=== PATIENT | female | born 1980 | race Caucasian/White ===

== ENCOUNTER 2016-10-07 09:17 | Emergency (ER) | payer OTHER ==
[2016-10-07 10:10] VITALS: BP 128/67
--- NOTE | 2016-10-07 12:22 | UC ---
Minor Trauma HPI - HPI Summary HPI Summary: SLIPPED DOWN A FLIGHT OF WOOD STEPS THIS MORNING 8AM. HIT THE BACK OF HER HEAD. NO LOC. IS CONCERNED SHE MAY HAVE CONCUSSED. HAD DIZZINESS AND NAUSEA FOR ABOUT AN HOUR AFTER THE INCIDENT. NOW FEELS VERY FATIGUED. ALSO C/O MSK PAIN LEFT ARM AND LEG AND RIGHT ANKLE AND WRIST. SOME LOW BACK PAIN. IS NOT CONCERNED TODAY ABOUT FRACTURE. - History of Current Complaint Chief Complaint: UCGeneralIllness Stated Complaint: FELL LEFT SIDE INJURIES R SHOULDER INJURY BACK INJ Time Seen by Provider: 10/07/16 12:07 Hx Obtained From: Patient Hx Last Menstrual Period: 2012 Onset/Duration: Sudden Onset, Lasting Hours, Still Present Onset Of Pain: Immediate Severity Initially: Moderate Severity Currently: Moderate Pain Intensity: 5 Pain Scale Used: 0-10 Numeric Mechanism Of Injury: Fall From A Standing Position - DOWN THE STAIRS Aggravating Factor(s): Movement Alleviating Factor(s): Nothing Associated Signs And Symptoms: Negative: Loss Of Consciousness - Allergies/Home Medications Allergies/Adverse Reactions: Allergies Allergy/AdvReac Type Severity Reaction Status Date / Time Azithromycin [From Zithromax] Allergy Intermediate Rash Verified 10/07/16 10:11 Ibuprofen Allergy Intermediate Anxiety Verified 10/07/16 10:11 Penicillins Allergy Intermediate Unknown Verified 10/07/16 10:11 Reaction Details Home Medications: Home Medications Biotin 5 mg PO 10/07/16 [History] Calcium Carbonate (Antacid) [Tums] 500 mg PO 10/07/16 [History] Potassium Acid Phosphate TAB* [K Phos Original TAB*] 500 mg PO QID 10/07/16 [ History Confirmed 10/07/16] Vitamins W/ Lipotropics [Multi-Vitamin Hp/Minerals] 10/07/16 [History] PMH/Surg Hx/FS Hx/Imm Hx Endocrine History Of: Reports: Thyroid Disease, Hypothyroidism Denies: Diabetes Cardiovascular History Of: Denies: Cardiac Disorders, Hypertension, Pacemaker/ICD Respiratory History Of: Denies: COPD, Asthma GI/ History Of: Denies: Ulcer, Renal Disease Neurological History Of: Reports: Seizures - A -STATES LACK OF CALCIUM - NO PROBLEMS SINCE Psychological History Of: Reports: Anxiety - NO MEDICATION FOR - Surgical History Surgical History: Yes Surgery Procedure, Year, and Place: gallbladder surg 2005. x3. gastric sleeve surgery for weight loss - Family History Known Family History: Positive: Cardiac Disease, Diabetes, Other - Cancer - Social History Alcohol Use: Occasionally Alcohol Amount: 1 DAILY Substance Use Type: None Smoking Status (MU): Former Smoker Type: Cigarettes Amount Used/How Often: SOCIAL SMOKER TO 1/2 PPD X 14 YEARS Have You Smoked in the Last Year: Yes When Did the Patient Quit Smoking/Using Tobacco: 2 WEEKS AGO - Immunization History Most Recent Influenza Vaccination: ? OF LAST Most Recent Tetanus Shot: UP TO DATE Most Recent Pneumonia Vaccination: HAS NOT HAD Review of Systems Constitutional: Fatigue Respiratory: Negative Cardiovascular: Negative Gastrointestinal: Negative Musculoskeletal: Arthralgia, Myalgia Neurological: Headache All Other Systems Reviewed And Are Negative: Yes Physical Exam Triage Information Reviewed: Yes Appearance: Well-Appearing, No Pain Distress, Well-Nourished Vital Signs: Initial Vital Signs Temp 97.3 F 10/07/16 10:06 Pulse 47 10/07/16 10:06 Resp 16 10/07/16 10:06 BP 128/67 10/07/16 10:06 Pulse Ox 100 10/07/16 10:06 Vital Signs Reviewed: Yes Eyes: Positive: Conjunctiva Clear ENT: Positive: Hearing grossly normal, Pharynx normal, TMs normal Neck: Positive: Supple Respiratory: Positive: No respiratory distress, No accessory muscle use Cardiovascular: Positive: Pulses Normal Abdomen Description: Positive: Soft Musculoskeletal: Positive: No Edema Neurological: Positive: Alert, Other: - CN II-XII GROSSLY INTACT BILATERALLY. NEG PRONATOR DRIFT. NEGATIVE ROMBERG. FINGER TO NOSE INTACT BILATERALLY. HEEL TO ROTHMAN INTACT BILATERALLY. HEEL TO TOE INTACT BILATERALLY. RAPID ALTERNATING MVMTS INTACT. 5/5 STRENGTH Psychological: Positive: Age Appropriate Behavior Skin: Positive: Other - ECCHYMOSIS LEFT FOREARM.. Negative: rashes Minor Trauma Course/Dx - Differential Dx/Diagnosis Provider Diagnoses: 1. CONCUSSION. 2. CONTUSIONS Discharge - Discharge Plan Condition: Stable Disposition: HOME Prescriptions: Cyclobenzaprine TAB* [Flexeril TAB*] 10 mg PO BID PRN #30 tab PRN Reason: Pain Naproxen [Naproxen EC] 500 mg PO BID PRN #30 tab PRN Reason: Pain Patient Education Materials: Muscle Strain (ED), Concussion (ED), Contusion in Adults (ED) Referrals: Dong Hanson MD [Primary Care Provider] - If Needed
== END 2016-10-07 12:52 | disposition home or self-care (01) ==
LOC: UCEAST 09:17
DX: S06.0X0A Concussion without loss of consciousness, initial encounter (principal); T14.8 Other injury of unspecified body region; Z98.84 Bariatric surgery status; Z87.891 Personal history of nicotine dependence; Z88.0 Allergy status to penicillin; Z88.1 Allergy status to other antibiotic agents; Z88.6 Allergy status to analgesic agent; W10.9XXA Fall (on) (from) unspecified stairs and steps, initial encounter; Y92.9 Unspecified place or not applicable
CPT/HCPCS: 99212; G0463

== ENCOUNTER 2017-06-22 08:37 | Emergency (ER) | payer OTHER ==
[2017-06-22 09:03] VITALS: BP 103/74
--- NOTE | 2017-06-22 09:34 | UC ---
Throat Pain/Nasal Jerald HPI - HPI Summary HPI Summary: FOUR DAYS OF SINUS CONGESTION, NON PRODUCTIVE COUGH, FEVERS. - History of Current Complaint Hx Obtained From: Patient Hx Last Menstrual Period: Summer-2012 Onset/Duration: Gradual Onset, Lasting Days, Still Present Severity: Moderate Cough: Nonproductive Associated Signs & Symptoms: Positive: Sinus Discomfort, Nasal Discharge - Epiglottits Risk Factors Epiglottis Risk Factors: Negative <Modesto Thornton - Last Filed: 06/22/17 09:31> <Milla Golden - Last Filed: 06/22/17 09:40> - History of Current Complaint Chief Complaint: UCGeneralIllness Stated Complaint: URI Time Seen by Provider: 06/22/17 09:09 - Allergies/Home Medications Allergies/Adverse Reactions: Allergies Allergy/AdvReac Type Severity Reaction Status Date / Time Azithromycin [From Zithromax] Allergy Intermediate Rash Verified 06/22/17 08:57 Ibuprofen Allergy Intermediate Anxiety Verified 06/22/17 08:57 Penicillins Allergy Intermediate Unknown Verified 06/22/17 08:57 Reaction Details Home Medications: Home Medications Dayquil 06/22/17 [History] Nyquil 06/22/17 [History] PMH/Surg Hx/FS Hx/Imm Hx Previously Healthy: Yes - Surgical History Surgical History: Yes Surgery Procedure, Year, and Place: gallbladder surg 2005. x3. gastric sleeve surgery for weight loss. brachytherapy. port placement and removal - Family History Known Family History: Positive: Cardiac Disease, Diabetes, Respiratory Disease - ASTHMA, Other - Cancer - Social History Occupation: Employed Full-time Lives: With Family Alcohol Use: Occasionally Alcohol Amount: 1 DAILY Substance Use Type: None Smoking Status (MU): Former Smoker Type: Cigarettes Amount Used/How Often: SOCIAL SMOKER TO 1/2 PPD X 14 YEARS Have You Smoked in the Last Year: Yes When Did the Patient Quit Smoking/Using Tobacco: 2 WEEKS AGO - Immunization History Most Recent Influenza Vaccination: ? OF LAST Most Recent Tetanus Shot: UP TO DATE Most Recent Pneumonia Vaccination: HAS NOT HAD <Modesto Thornton - Last Filed: 06/22/17 09:31> Review of Systems Constitutional: Negative Skin: Negative Eyes: Negative ENT: Sinus Congestion, Sinus Pain/Tenderness Respiratory: Cough Cardiovascular: Negative Gastrointestinal: Negative Genitourinary: Negative Motor: Negative Neurovascular: Negative Musculoskeletal: Negative Neurological: Negative Psychological: Negative Is Patient Immunocompromised?: No All Other Systems Reviewed And Are Negative: Yes <Modesto Thornton - Last Filed: 06/22/17 09:31> Physical Exam Triage Information Reviewed: Yes Appearance: Well-Appearing, No Pain Distress, Well-Nourished Vital Signs: Initial Vital Signs Temp 98.9 F 06/22/17 08:58 Pulse 58 06/22/17 08:58 Resp 16 06/22/17 08:58 BP 103/74 06/22/17 08:58 Pulse Ox 98 06/22/17 08:58 Vital Signs Reviewed: Yes Eye Exam: Normal ENT: Positive: Hearing grossly normal, Nasal congestion, TM bulging, TM dull Dental Exam: Normal Neck exam: Normal Neck: Positive: Supple, Nontender, No Lymphadenopathy Respiratory Exam: Other - COUGH Respiratory: Positive: Chest non-tender, Lungs clear, Normal breath sounds, No respiratory distress, No accessory muscle use Cardiovascular Exam: Normal Cardiovascular: Positive: RRR, No Murmur, Pulses Normal Abdominal Exam: Normal Musculoskeletal Exam: Normal Neurological Exam: Normal Psychological Exam: Normal Psychological: Positive: Normal Response To Family Skin Exam: Normal <Modesto Thornton - Last Filed: 06/22/17 09:31> Vital Signs: Initial Vital Signs Temp 98.9 F 06/22/17 08:58 Pulse 58 06/22/17 08:58 Resp 16 06/22/17 08:58 BP 103/74 06/22/17 08:58 Pulse Ox 98 06/22/17 08:58 <Milla Golden - Last Filed: 06/22/17 09:40> Throat Pain/Nasal Course/Dx - Differential Dx/Diagnosis Differential Diagnosis/HQI/PQRI: Pharyngitis, Sinusitis, URI Provider Diagnoses: SINUSITIS, UPPER RESPIRATORY INFECTION. <Modesto Thornton - Last Filed: 06/22/17 09:31> Discharge <Modesto Thornton - Last Filed: 06/22/17 09:31> <Milla Golden - Last Filed: 06/22/17 09:40> - Discharge Plan Condition: Stable Disposition: HOME Prescriptions: DOXYcycline CAP(*) [DOXYcycline 100MG CAP(*)] 100 mg PO BID #20 cap Patient Education Materials: Sinusitis (ED), Acute Bronchitis (ED) Forms: *Work Release Referrals: Dong Hanson MD [Primary Care Provider] - Attestation Statement User Type: Provider - I was available for consult. This patient was seen by the [facility]. The patient was not presented to, seen by, or examined by me. -Yael <Milla Golden - Last Filed: 06/22/17 09:40>
== END 2017-06-22 09:41 | disposition home or self-care (01) ==
LOC: UCEAST 08:37
DX: J06.9 Acute upper respiratory infection, unspecified (principal); Z87.891 Personal history of nicotine dependence; J32.9 Chronic sinusitis, unspecified
CPT/HCPCS: 99212; G0463

== ENCOUNTER 2018-04-09 07:03 | Day surgery (SDC) | payer OTHER ==
--- NOTE | 2018-04-06 14:35 | HP ---
HISTORY AND PHYSICAL: DATE OF ADMISSION/SURGERY: 04/09/18 DATE OF HISTORY AND PHYSICAL: 04/05/18 SURGEON: Dr. Santy Gonsalez* (dictated by CHRISTIAN Elmore). PROCEDURE: Right carpal tunnel release. CHIEF COMPLAINT: Right hand numbness and tingling. HISTORY OF PRESENT ILLNESS: Ms. 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 She underwent an EMG of her right hand on 02/23/18, which was negative for carpal tunnel syndrome, ulnar neuropathy, brachial plexopathy, cervical motor radiculopathy affecting the right upper limb. She states her symptoms did not change. Symptoms are particularly worse at the end of a 16-hour shift when she has pain in the inner most part of her wrist extending to palm of hand. She has not used a brace at this time. She has not had swelling in the extremities. She denies any history or problems with anesthesia or DVT. PAST MEDICAL HISTORY: Hypothyroidism and history of cervical cancer, in remission for the last 5 years. PAST SURGICAL HISTORY: Brachytherapy, gastric sleeve, port placement, 3 C- sections, and cholecystectomy. CURRENT MEDICATIONS: Levothyroxine 75 mcg daily. FAMILY MEDICAL HISTORY: Positive for paternal grandfather with cancer. Maternal family with positive cancer. Grandmother with hypertension, VT, and Alzheimer's, and mother is with Parkinson's. SOCIAL HISTORY: Former tobacco user. Denies alcohol use and denies any illicit drug use. REVIEW OF SYSTEMS: Positive for her presenting complaint as outlined in the HPI as well as thyroid disease. Otherwise, a 14-point review of systems including general, HEENT, integumentary, cardiothoracic, pulmonary, GI, , neurological, hematological, and infectious disease were negative. PHYSICAL EXAMINATION GENERAL: Well nourished, well developed, in no acute distress. Alert and oriented. Ambulating with a nonantalgic gait. HEENT: Normocephalic, atraumatic. Pupils are equally round and reactive to light. Extraocular movements intact. NECK: Supple. No palpable cervical lymph nodes. Thyroid is smooth and nontender. PULMONARY: Lungs clear to auscultation bilaterally with no wheezes, rales, or rhonchi. CARDIAC: Regular rate and rhythm. No murmurs, rubs, or gallops. MUSCULOSKELETAL: Cervical spine with full range of motion. No tenderness to palpation over the paraspinal or spinal regions. Spurling's test procedure, the patient has right-sided neck pain only. Right shoulder with full range of motion. Right wrist, ulnar artery 2+, radial artery 1+ measured more proximally. Positive Durkan's test of the long finger. Positive Phalen's. Inconsistent Tinel's testing of the carpal tunnel. No wounds or open scars. Decreased watchmaking teacher strength in the right when compared to left. There is 3/5 strength. ASSESSMENT: Right carpal tunnel syndrome. PLAN: Ms. Valentine is scheduled to undergo right carpal tunnel release with Dr. Santy Gonsalez on 04/09/18. She will return to the clinic 10 to 14 days postop for followup and suture removal. Prescription for pain medication will be prescribed on date of surgery. She has no history of DVT and will not likely need any DVT prophylaxis. CHRISTIAN ELMORE [id number]/[facility] #: [id number] DANNY
[~2018-04-09 07:03] MED LIST: Buffered Lidocaine 0.9% SYRIN* 5 ML/SYR SYRINGE INTRADERM ONE; Famotidine IV* 10 MG/ML 2 ML (20 mg) IV ONE
[2018-04-09] MEDS ORDERED: Famotidine IV* 10 MG/ML 2 ML (20 mg) ONE (07:33)
[2018-04-09] MEDS ORDERED: Buffered Lidocaine 0.9% SYRIN* 5 ML/SYR SYRINGE ONE (07:33)
[2018-04-09] MEDS ORDERED: Midazolam* 1 MG/ML 5 ML VIAL (5 MG) ONE (08:29)
[2018-04-09] MEDS ORDERED: fentaNYL* 50 MCG/ML 2 ML VIAL (100 MCG VIAL) ONE (08:35)
[2018-04-09] MEDS ORDERED: Bupivacaine 0.5% PF 10 ML VIAL INJ ONE (08:37)
[2018-04-09] MEDS ORDERED: Propofol* 10 MG/ML 20 ML BTL IV PUSH ONE (08:45)
[2018-04-09] MEDS ORDERED: Ketorolac INJ* 30 MG/ML 1 ML VIAL ONE (08:45)
[2018-04-09] MEDS ORDERED: Lidocaine 2% PF * 5 ML VIAL ONE (08:45)
[2018-04-09] MEDS ORDERED: Ondansetron INJ* 2 MG/ML VIAL IV PRN (09:38)
[2018-04-09] MEDS ORDERED: Naloxone* 0.4 MG/ML 1 ML VIAL IV PRN (09:38)
[2018-04-09] MEDS ORDERED: Acetaminophen TAB* 325 MG PO PRN (09:38)
[2018-04-09] MEDS ORDERED: oxyCODONE TAB* 5 MG TAB PO PRN (09:38)
[2018-04-09 10:35] VITALS: BP 114/81
--- NOTE | 2018-04-11 22:54 | OP ---
DATE OF OPERATION: 04/09/18 - SDS DATE OF : 82 SURGEON: Santy Gonsalez MD HEALTH TEACHER: CHRISTIAN Rojo. A physician trust manager assistant was required for the length of the procedure for retraction and assistance with closure. ANESTHESIOLOGIST: Nidia Grider MD ANESTHESIA: General sedation; local anesthesia with 10 cc of Marcaine 0.5% without epinephrine. PRE-OP DIAGNOSIS: Right carpal tunnel syndrome. POST-OP DIAGNOSIS: Right carpal tunnel syndrome. OPERATIVE PROCEDURE: Open carpal tunnel release, right. 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 The patient described pain at night as well as pain at the end of a shift at work. She described numbness and tingling in the right index, middle and ring finger. The patient had treated herself with a wrist brace while sleeping and a Medrol Dosepak without significant improvement. The patient's physical exam was consistent with a diagnosis of carpal tunnel syndrome. EMG nerve conduction study test did not demonstrate changes consistent with carpal tunnel. However, given the history and physical exam consistent with carpal tunnel syndrome and the patient's failure to respond to nonoperative management, we opted to move forward with surgical management of right carpal tunnel syndrome. Discussed risks and potential complications of surgery including bleeding, infection, nerve or blood vessel injury, recurrence of carpal tunnel syndrome. ANTIBIOTICS: Ancef 2 g IV. IV FLUIDS: 1000 cc crystalloid. TOURNIQUET TIME: 12 minutes at 250 mmHg. VZAU-PY-[id number] TIME: 12 minutes. SPECIMEN: None. IMPLANTS: None. COMPLICATIONS: None. ESTIMATED BLOOD LOSS: 0 cc. DESCRIPTION OF PROCEDURE: The patient signed a written consent in preoperative holding. Operative extremity was marked in preoperative holding. The patient was taken back to the operating room and placed supine on operating room table. Hand table was attached. The patient was given some light sedation. I performed a mini time-out. I then injected the local anesthetic. I injected 6 cc 6 cm proximal to the wrist flexion crease into the vicinity of the median nerve. I then injected the remaining 4 cc of 0.5% Marcaine into the distal volar forearm fascia, the skin overlying the carpal tunnel and the carpal tunnel itself. The patient had a tourniquet placed around the right upper arm. The right upper extremity was prepped and draped. Surgical time-out was performed. Esmarch was applied and the tourniquet was elevated to 250 mmHg. I made a skin incision, approximately 2.5 to 3 cm long in standard location after marking all the appropriate landmarks. I exchanged knives and continued my dissection through the subcutaneous tissue and the volar longitudinal fascia. A self-retractor was placed after dissection with Salbador retractors. I dissected down to the transverse carpal ligament. This was done with a small bump under the wrist pushing the wrist into some extension. The superficial surface of the transverse carpal ligament was cleared off with a sponge. A 15- blade knife was used to release the transverse carpal ligament. I then placed retractors distally, cleared off the transverse carpal ligament superficial and deep and then continued my release distally with a 15-blade. The transverse carpal ligament retracted significantly both radially and ulnarly. Overlying the transverse carpal ligament was significant erythema consistent with some irritation and synovitis consistent with a very symptomatic tightened transverse carpal ligament. I then repositioned myself and flexed the wrist. I cleared off the proximal aspect of the transverse carpal ligament superficial and deep and then released the ligament into the distal volar forearm fascia with the tip of scissors. I was content that the release was sufficient. Irrigation. Closure of the skin with horizontal mattress stitches using nylon 3 -0 suture. Xeroform, 4x4s, sterile Webril, Coban. Big bulky dressing. Tourniquet was dropped. The patient was lightened of sedation and transferred to the PACU. DISPOSITION: The patient was discharged home when medically stable on [place], to take as needed. The patient was given wound care instructions. The patient will follow up in clinic with a PA in 7 to 10 days. The patient will then see me back in clinic in May. [id number]/[facility] #: [id number] DANNY
== END 2018-04-09 10:38 | disposition home or self-care (01) ==
LOC: OR 07:03
PROVIDERS: ATTEND Orthopaedic Surgery
DX: G56.01 Carpal tunnel syndrome, right upper limb (principal); E03.9 Hypothyroidism, unspecified; Z85.41 Personal history of malignant neoplasm of cervix uteri; Z87.891 Personal history of nicotine dependence
CPT/HCPCS: 81025; J1885; J2250; J2704; J3010

== ENCOUNTER 2019-07-05 21:23 | Emergency (ER) | payer OTHER ==
[2019-07-05 21:33] VITALS: BP 142/90
== END 2019-07-05 22:48 | disposition left against medical advice (07) ==
LOC: ED 21:23
DX: Z53.21 Procedure and treatment not carried out due to patient leaving prior to being seen by health care provider (principal); R11.0 Nausea; R42 Dizziness and giddiness; R20.0 Anesthesia of skin
CPT/HCPCS: 99281

== ENCOUNTER 2019-12-18 15:48 | Emergency (ER) | payer BC ==
--- OUTSIDE RECORDS SUMMARY | 2019-12-18 15:53 | XMS REPORT | Continuity of Care Document ---
:1980 External Reference #:[id number] Author Name Kathryn Jefferson MD Address [address] [place] [address] Care Team Providers Name Role Phone Teodora Whipple EQUIPMENT OPERATOR/LABORER - Family Care Team Information Oracle Fusion Middleware Developer [phone] Problems Active Problems Provider Date History of malignant neoplasm of cervix Kathryn Jefferson MD Onset: 03/23/2019 Social History Type Date Description Comments Sex Unknown Tobacco Use Start: Unknown Patient has never smoked Smoking Status Reviewed: 12/06/19 Patient has never smoked Allergies, Adverse Reactions, Alerts Active Allergies Reaction Severity Comments Date Ibuprofen 11/04/2005 Penicillin 11/04/2005 Zithromax 11/04/2005 Medications Active Medications SIG Qnty Indications Ordering Provider Date Levothyroxine Sodium 1 by mouth Unknown 75mcg every day Tablets Medications Administered in Office Medication SIG Qnty Indications Ordering Provider Date PT SCRN Tbco Id as Non User Kathryn Jefferson MD 12/06/2019 Injection PT SCRN Tbco Id as Non User Kathryn Jefferson MD 03/22/2019 Injection PT SCRN Tbco Id as Non User Kathryn Jefferson MD 11/29/2018 Injection Immunizations Description No Information Available Vital Signs Date Vital Result Comment 12/06/2019 1:31pm BP Systolic 122 mmHg BP Diastolic 74 mmHg Height 61.5 inches 5'1.50" Weight 183.00 lb BMI (Body Mass Index) 34.0 kg/m2 Last Menstrual Period [id number] Parity 3 05/04/2019 1:39pm BP Systolic 106 mmHg BP Diastolic 72 mmHg Height 61.5 inches 5'1.50" Weight 167.00 lb BMI (Body Mass Index) 31.0 kg/m2 6 Parity 3 Results Test Acquired Date Facility Test Result H/L Range Note Laboratory test 12/06/2019 [facility] Cytology <pending> [place] [address] [phone] Procedures Date Code Description Status 10/05/2012 67857955 Colonoscopy Completed Medical Devices Description No Information Available Encounters Type Date Location Provider Dx Diagnosis Office Visit 12/06/2019 [facility] Kathryn Jefferson MD Z85.41 Personal history of 1:30p malignant neoplasm of cervix uteri Z01.411 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) w abnormal findings N39.3 Stress incontinence (female) (male) R10.2 Pelvic and perineal pain Assessments Date Code Description Provider 12/06/2019 Z85.41 Personal history of malignant neoplasm of Kathryn Jefferson MD cervix uteri 12/06/2019 Z01.411 Encounter for gynecological examination Kathryn Jefferson MD (general) (routine) with abnormal findings 12/06/2019 N39.3 Stress incontinence (female) (male) Kathryn Jefferson MD 12/06/2019 R10.2 Pelvic and perineal pain Kathryn Jefferson MD Plan of Treatment 12/06/2019 - Kathryn Jefferson MDZ85.41 Personal history of malignant neoplasm of cervix uteriComments:colp if +pap. Otherwise repeat in 6moZ01.411 Encounter for gynecological examination (general) (routine) with abnormal findingsComments :Maintain routine exercise and healthy diet. Try to get adequate sleep at night to improve your overall health (most people need ~8 hours!)Perform periodic breast exams at various times of the month to become familiar with your breast tissue so you are more likely to notice something abnormal. Return for annual exam in 1 year or earlier if concerns arise. Routine cervical cancer screening has changed. Pap smears are no longer done every year for low-risk women. A combination screening with both a pap smear (looking for abnormal cells ) and HPV testing are recommended every 3-5 years. It takes many years for normal cells to become abnormal and many more years for the abnormal cells to become cancer. Women should still come for a yearly visit and exam. When there is an abnormal pap smear or +HPV testing more frequent screening is recommended.N39.3 Stress incontinence (female) (male)Comments:Call to schedule an appointment with [facility] ([phone]) or at [facility] with Luz Calzada. 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 Often time the underlying reason for the pain is hard to identify. Regardless of the underlying cause of the pain, usually the body reacts to a painful stimuli by protecting the area through danni the pelvic/abdominal muscles. This can lead to increased pain and chronically tensed pelvic muscles. Pelvic physical therapists can help identify these tensed muscles and work with you to learn to relax them and release some of the tension. This almost always improves chronic pain even if it may not make it go away completely. Functional Status Description No Information Available Mental Status Description No Information Available Referrals Description No Information Available
--- OUTSIDE RECORDS SUMMARY | 2019-12-18 15:53 | XMS REPORT | Continuity of Care Document ---
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 Onset: 2017 Social History Type Date Description Comments Sex Unknown ETOH Use Rare Tobacco Use Start: Unknown Nonsmoker Smoking Status Reviewed: 04/09/18 Nonsmoker Allergies, Adverse Reactions, Alerts Active Allergies Reaction Severity Comments Date Penicillin 01/19/2004 Ibuprophen 01/19/2004 Zithromax Hives 05/31/2005 Medications Active Medications SIG Qnty Indications Ordering Provider Date Levothyroxine Sodium Take 1 Tablet 30tabs E03.9 TAY Sheffield 2018 75mcg By Mouth Every Tablets Day Medications Administered in Office Medication SIG Qnty Indications Ordering Provider Date TB Intradermal Test TAY Sheffield 07/03/2010 Injection TB Intradermal Test TAY Sheffield 08/22/2004 Injection TB Intradermal Test Dong Hanson M.D. 08/22/2004 Injection Immunizations CPT Code Status Date Vaccine Lot # [id number] Given 06/26/2017 Influenza Vac, Quadrivalent, Slit Virus, Im [id number] Given 05/23/2016 MMR Virus Immunization [id number] Given 05/03/2014 Tdap Tetanus, W Pertussis [id number] Given 08/08/2010 DO Not Use Split Influenza Virus Vaccine [id number] 94261 Given 06/28/1996 Td Immunization, For Use In Individuals 7 Years Or Older 65359 Given 03/01/1986 IPV Inactive Poliovirus Vaccine 25051 Given 03/01/1986 DTP Immunization [id number] Given 05/05/1983 DTP Immunization 24751 Given 11/22/1982 MMR Virus Immunization 26684 Given 05/05/1982 IPV Inactive Poliovirus Vaccine 88539 Given 02/06/1982 IPV Inactive Poliovirus Vaccine [id number] Given 02/06/1982 DTP Immunization 54690 Given 1981 IPV Inactive Poliovirus Vaccine 70885 Given 1981 DTP Immunization 61998 Given 1981 IPV Inactive Poliovirus Vaccine 26816 Given 1981 DTP Immunization Vital Signs Date Vital Result Comment 10/24/2019 2:01pm BP Systolic 120 mmHg BP Diastolic 82 mmHg Heart Rate 76 /min Body Temperature 97.5 F Height 61.5 inches 5'1.50" Weight 182.00 lb BMI (Body Mass Index) 33.8 kg/m2 05/20/2018 12:51pm BP Systolic 102 mmHg BP Diastolic 72 mmHg Heart Rate 62 /min Body Temperature 98.1 F Height 61.5 inches 5'1.50" Weight 160.00 lb BMI (Body Mass Index) 29.7 kg/m2 Results Test Acquired Date Facility Test Result H/L Range Note Laboratory test 10/24/2019 [facility] medicine Quickstrep negative Negative finding (607)- - Procedures Description No Information Available Medical Devices Description No Information Available Encounters Description No Information Available Assessments Date Code Description Provider 10/24/2019 J06.9 Acute upper respiratory infection, Corinne Whatley unspecified 10/24/2019 R05 Cough Corinne Whatley 10/24/2019 E03.9 Hypothyroidism, unspecified Hilda HenryCorinne Plan of Treatment 10/24/2019 - Jose Whatley-CJ06.9 Acute upper respiratory infection, [id number] CoughFollow up:Followup:. (Follow up)E03.9 Hypothyroidism, unspecifiedNew Labs:Free T4 ([facility]), Ordered: 10/24/19TSH ([facility] ), Ordered: 10/24/19Follow up:Followup:. (Follow up)AllComments:Medication Management Patient Understands medications she's taking? Yes No Are there Barriers to Adherence? Yes No Has the patient been asked about herbal supplements and therapies, and OTC meds? Yes No Care Plan1. Patient has been queried about patient's goals/preferences and functional/lifestyle goals at relevant visits. If relevant, describe: na2. Treatment goals as explained to the patient: abovesx resolution euthyroid 3. Are there barriers to meeting treatment goals? Yes No If Yes, please describe:4. Self-Management goals as described to the patient: Yes No this is likely a viral uri and ought to respond to sx rx -- continue soothing liqs, lozenge and analgesialab order for thyroid draw per pt request f/u if no better or sx worsen Functional Status Description No Information Available Mental Status Description No Information Available Referrals Description No Information Available
[2019-12-18 16:22] VITALS: BP 107/65
[2019-12-18 17:52] LABS: Influenza A Molecular Negative (Negative); Influenza B Molecular Negative (Negative)
--- NOTE | 2019-12-18 17:54 | ED ---
Influenza-Like Illness - HPI Summary HPI Summary: 31-year-old white female presents with acute fatigue, body since 6:30AM this morning associated with fever chills. Denies sore throat or cough but feels extremely tired, and feeling like she got "hit by a truck" type of fatigue. Denies nausea vomiting or diarrhea. - History of Current Complaint Chief Complaint: UCGeneralIllness Time Seen by Provider: 12/18/19 17:38 Hx Obtained From: Patient Onset/Duration: Sudden Onset Severity: Moderate Associated Signs & Symptoms: Fever, Myalgia Related Hx: Possible Flu/Infectious Exposure - Risk Factors Influenza Risk Factors: Negative - Allergy/Home Medications Allergies/Adverse Reactions: Allergies Allergy/AdvReac Type Severity Reaction Status Date / Time azithromycin Allergy Rash Verified 12/18/19 16:22 ibuprofen Allergy Unknown Verified 12/18/19 16:22 Reaction Details Penicillins Allergy Rash Verified 12/18/19 16:22 Home Medications: Home Medications Levothyroxine TAB* 75 mcg PO QAM 04/14/16 [History Confirmed 12/18/19] Naproxen [Naprosyn 500 mg tab] 500 mg PO Q12HR PRN 03/26/18 [History Confirmed 12/18/19] Cefuroxime 500 MG TAB (NF) [Ceftin 500 MG TAB (NF)] 500 mg PO BID 7 Days #14 tab 12/18/19 [Rx] Oseltamivir CAP* [Tamiflu CAP*] 75 mg PO BID 5 Days #10 cap 12/18/19 [Rx] PMH/Surg Hx/FS Hx/Imm Hx Previously Healthy: Yes Endocrine/Hematology History: Reports: Hx Thyroid Disease - ON MEDS NORMAL RANGE Denies: Hx Diabetes Cardiovascular History: Denies: Hx Hypertension, Hx Pacemaker/ICD Respiratory History: Denies: Hx Asthma, Hx Chronic Obstructive Pulmonary Disease (COPD) GI History: Reports: Other GI Disorders - HERNIA REPAIR Denies: Hx Ulcer History: Denies: Hx Dialysis, Hx Renal Disease Musculoskeletal History: Reports: Other Musculoskeletal History - CARPAL TUNNEL SYDROME RIGHT HAND ARM Sensory History: Denies: Hx Contacts or Glasses, Hx Hearing Aid Opthamlomology History: Denies: Hx Contacts or Glasses Neurological History: Reports: Hx Seizures - A -STATES LACK OF CALCIUM - NO PROBLEMS SINCE Psychiatric History: Reports: Hx Anxiety Denies: Hx Panic Disorder - Cancer History Cancer Type, Location and Year: Cervical-2013 Hx Chemotherapy: Yes - Surgical History Surgery Procedure, Year, and Place: gallbladder surg 2005. x3 1999, 2002,2006 [facility] [place]. gastric sleeve surgery for weight loss 2003 DR. RAMSEY. brachytherapy 2014. port placement and removal 2013 REMOVED IN 2014 Hx Anesthesia Reactions: No Infectious Disease History: No Infectious Disease History: Denies: Hx Hepatitis, Hx Human Immunodeficiency Virus (HIV), Hx Shingles, Hx Tuberculosis, Traveled Outside the [place] in Last 30 Days - Family History Known Family History: Positive: Cardiac Disease, Diabetes, Respiratory Disease - ASTHMA, Other - Cancer - Social History Alcohol Use: None Alcohol Amount: 1 DAILY Substance Use Type: Reports: None Smoking Status (MU): Former Smoker Type: Cigarettes Amount Used/How Often: SOCIAL SMOKER TO 1/2 PPD X 14 YEARS Have You Smoked in the Last Year: Yes Review of Systems Positive: Fever, Chills, Fatigue Eyes: Negative ENT: Negative Cardiovascular: Negative Respiratory: Negative Gastrointestinal: Negative Genitourinary: Negative Musculoskeletal: Negative Skin: Negative Neurological/Mental Status: Negative Psychological: Normal All Other Systems Reviewed And Are Negative: Yes Physical Exam - Summary Physical Exam Summary: Vital Signs Reviewed: Yes Gen: NAD Eye Exam: Normal Eyes: Positive: Conjunctiva Clear ENT: Normal ENT inspection Neck: Supple Respiratory: Lungs clear, Normal breath sounds. Negative: Crackles, Rhonchi, Stridor, Wheezing Cardiovascular Exam: Normal, RRR, S1, S2 Abdomen: NT/ND Musculoskeletal Exam: Normal Neurological Exam: Normal Psychological Exam: Normal Skin Exam: Normal Vital Signs On Initial Exam: Initial Vitals Temp Pulse Resp BP Pulse Ox 36.8 C 80 20 107/65 100 12/18/19 16:15 12/18/19 16:15 12/18/19 16:15 12/18/19 16:15 12/18/19 16:15 Diagnostics - Vital Signs Vital Signs Temp Pulse Resp BP Pulse Ox 12/18/19 16:15 36.8 C 80 20 107/65 100 - Laboratory Lab Statement: Any lab studies that have been ordered have been reviewed, and results considered in the medical decision making process. Flu Symptom Course/Dx - Course Assessment/Plan: Rapid flu negative however patient has acute viral syndrome, flulike illness with developing bronchitis and painful respiration, possibly developing viral/bacterial bronchopneumonia, willing to appear to cover with Tamiflu and Ceftin. - Diagnoses Provider Diagnoses: Flu-like symptoms, Fatigue Discharge ED - Sign-Out/Discharge Documenting (check all that apply): Patient Departure All imaging exams completed and their final reports reviewed: Yes - Discharge Plan Condition: Stable Disposition: HOME Prescriptions: Cefuroxime 500 MG TAB (NF) [Ceftin 500 MG TAB (NF)] 500 mg PO BID 7 Days #14 tab Oseltamivir CAP* [Tamiflu CAP*] 75 mg PO BID 5 Days #10 cap Patient Education Materials: Viral Syndrome (ED) Forms: *Work Release Referrals: Dong Hanson MD [Primary Care Provider] - - Billing Disposition and Condition Condition: STABLE Disposition: Home
== END 2019-12-18 18:21 | disposition home or self-care (01) ==
LOC: UCEAST 15:48
DX: R53.83 Other fatigue (principal); R50.9 Fever, unspecified; E07.9 Disorder of thyroid, unspecified; Z88.0 Allergy status to penicillin; Z88.1 Allergy status to other antibiotic agents; Z79.890 Hormone replacement therapy; Z85.41 Personal history of malignant neoplasm of cervix uteri; Z87.891 Personal history of nicotine dependence
CPT/HCPCS: 71046; 99212; G0463

== ENCOUNTER 2023-06-10 17:41 | Inpatient (IN) ==
[2023-06-10 18:52] LABS: Albumin 3.7 g/dL (3.2-5.2); Potassium 3.8 mmol/L (3.5-5.0); Total Bilirubin 1.3 mg/dL (0.2-1.0)
[2023-06-10 18:58] LABS: Albumin/Globulin Ratio 1.2 (1-3); C Reactive Protein 20.5 mg/L (<8.01); Creatinine, Serum 0.89 mg/dL (0.51-0.95); Total Protein 6.7 g/dL (6.4-8.9); eGFR CKD-EPI 83.5 (>60)
[2023-06-10 19:18] LABS: Hematocrit 35.1 % (35-45); Hemoglobin 11.9 g/dL (11.5-14.3); Mean Corpuscular Hemoglobin 29.8 pg (27-33); Mean Corpuscular Hgb Conc 33.8 g/dL (31-36); Mean Corpuscular Volume 88.1 fL (80-97); Platelet Count 219 10^3/uL (150-450); Red Blood Count 3.98 10^6/uL (3.63-4.92); Red Cell Distribution Width 18.1 % (12-17)
[2023-06-10 19:22] LABS: Activated Partial Thrombo Time 24.5 seconds (26.0-38.0); INR 1.07 (0.83-1.13)
[2023-06-10 19:40] LABS: ABS Lymphocytes 0.2 10^3/uL (1.0-4.8); ABS Monocytes 0.4 10^3/uL (0.0-0.9); ABS Neutrophils 10.4 10^3/uL (1.5-7.6); ABS Nucleated RBC 0.01 10^3/ul; Eosinophil % 0.3 %; Lymphocyte % 1.5 %
[2023-06-10 20:34] LABS: High Sensitivity Troponin 1 Hr 6 pg/mL (<15)
[2023-06-10] MEDS ORDERED: NS 0.9% 1000 ml BAG 2,000 ML IV ONE (21:57)
[2023-06-10] MEDS ORDERED: Cefepime 2 GM in Dextrose 2 GM/50 ML BAG IV ONE (21:59)
[2023-06-10] MEDS ORDERED: metroNIDAZOLE IV 500 MG/100ML 500 MG/100 ML BAG IVPB ONE (21:59)
[2023-06-10] MEDS ORDERED: Vancomycin 1,250 MG in NS 0.9% 250 ml 250 ML IVPB ONE (22:00)
[2023-06-11 00:35] LABS: Magnesium 1.6 mg/dL (1.9-2.7)
[2023-06-11] MEDS ORDERED: Magnesium Sulfate 2 gm BAG 2 GM/50 ML BAG IVPB ONE (01:12)
[2023-06-11] MEDS ORDERED: NS 0.9% 1000 ml BAG 1,000 ML IV SCH (03:00)
[2023-06-11] MEDS ORDERED: Norepinephrine 16MCG/ML BAGD5W 4,000 MCG/250 ML BAG IV ONE (03:25)
[2023-06-11] MEDS: Norepinephrine 16MCG/ML BAGD5W 4,000 MCG/250 ML BAG IV SCH ×2 (03:27→10:23)
[2023-06-11 03:34] LABS: Urine Appearance Cloudy; Urine Bilirubin Negative (Negative); Urine Blood 1+ (Negative); Urine Color Yellow; Urine Glucose Negative (Negative); Urine Ketones Negative (Negative); Urine Nitrite Negative (Negative); Urine Protein Negative (Negative); Urine Specific Gravity 1.009 (1.002-1.030); Urine Urobilinogen Negative (Negative)
[2023-06-11 03:40] LABS: Urine Bacteria 1+ (Absent); Urine Red Blood Cell Trace(0-2/hpf) (Absent); Urine Squamous Epithelial Cell Present (Absent); Urine White Blood Cell 3+(>20/hpf) (Absent)
[2023-06-11] MEDS ORDERED: Vancomycin per Pharmacy 1 EA NOTE FOLLOW UP SCH (05:00)
[2023-06-11] MEDS: Enoxaparin 40 MG/0.4 ML SYR SUBCUT SCH (05:23)
[2023-06-11 05:27] LABS: ABS Eosinophils 0.5 10^3/uL (0.0-0.5); ABS Lymphocytes 0.7 10^3/uL (1.0-4.8); ABS Monocytes 1.1 10^3/uL (0.0-0.9); ABS Neutrophils 9.5 10^3/uL (1.5-7.6); ABS Nucleated RBC 0.01 10^3/ul; Eosinophil % 4.6 %; Hematocrit 35.9 % (35-45); Hemoglobin 11.7 g/dL (11.5-14.3); Lymphocyte % 5.8 %; Mean Corpuscular Hemoglobin 29.9 pg (27-33); Mean Corpuscular Hgb Conc 32.8 g/dL (31-36); Mean Corpuscular Volume 91.3 fL (80-97); Mean Platelet Volume 7.1 fL (7.5-11.2); Platelet Count 258 10^3/uL (150-450); Red Blood Count 3.93 10^6/uL (3.63-4.92); Red Cell Distribution Width 18.3 % (12-17); White Blood Count 11.8 10^3/uL (3.8-11.8)
[2023-06-11 05:37] LABS: Albumin 3.4 g/dL (3.2-5.2); Calcium 7.7 mg/dL (8.6-10.3); Magnesium 2.2 mg/dL (1.9-2.7); Potassium 3.8 mmol/L (3.5-5.0); Total Bilirubin 2.3 mg/dL (0.2-1.0)
[2023-06-11 05:43] LABS: Albumin/Globulin Ratio 1.4 (1-3); Creatinine, Serum 0.78 mg/dL (0.51-0.95); Globulin 2.4 g/dL (2-4); Phosphorus 2.4 mg/dL (2.5-5.0); Total Protein 5.8 g/dL (6.4-8.9); eGFR CKD-EPI 97.8 (>60)
[2023-06-11 06:17] LABS: Free T3 2.6 pg/mL (2.5-3.9)
[2023-06-11 06:18] LABS: Free T4 0.39 ng/dL (0.61-1.12)
[2023-06-11 07:02] LABS: TSH Ultra Thyroid Stim Horm 47.17 mcIU/mL (0.34-5.60)
[2023-06-11] MEDS ORDERED: Pantoprazole VIAL 40 MG VIAL IV SCH (09:00)
[2023-06-11] MEDS: Vancomycin 1,250 MG in NS 0.9% 250 ml 250 ML IVPB SCH ×2 (10:19→22:25)
[2023-06-11] MEDS ORDERED: Vancomycin 1,250 MG in NS 0.9% 250 ml 250 ML IVPB SCH (10:30)
[2023-06-11] MEDS ORDERED: Cefepime ADVAN 1 GM in NS 0.9% 50 ML 50 ML IVPB SCH (12:00)
[2023-06-11] MEDS ORDERED: Cefepime 2 GM in Dextrose 2 GM/50 ML BAG IV SCH (13:30)
[2023-06-11] MEDS: Cefepime 2 GM in Dextrose 2 GM/50 ML BAG IV SCH (13:33)
[2023-06-11] MEDS: Levothyroxine 100 MCG/5 ML VIAL IV SCH (16:30)
[2023-06-11] MEDS: Miconazole 2% Top Powder BTL TOPICAL SCH (22:25)
[2023-06-11] MEDS: Calcium/Vitamin D TAB 250/125 TAB PO SCH (22:25)
[2023-06-12] MEDS ORDERED: Cefepime 1 GM in Dextrose 1 GM/50 ML BAG IV SCH (01:00)
[2023-06-12] MEDS: Cefepime 2 GM in Dextrose 2 GM/50 ML BAG IV SCH ×2 (01:46→12:10)
[2023-06-12 04:19] LABS: ABS Eosinophils 0.2 10^3/uL (0.0-0.5); ABS Lymphocytes 1.3 10^3/uL (1.0-4.8); ABS Monocytes 0.5 10^3/uL (0.0-0.9); ABS Neutrophils 3.6 10^3/uL (1.5-7.6); Eosinophil % 3.9 %; Hematocrit 28.5 % (35-45); Lymphocyte % 23.3 %; Mean Corpuscular Hgb Conc 35.1 g/dL (31-36); Mean Corpuscular Volume 88.2 fL (80-97); Mean Platelet Volume 7.3 fL (7.5-11.2); Nucleated Red Blood Cells % 0.1 /100 WBC (0.0-0.4); Platelet Count 159 10^3/uL (150-450); Red Blood Count 3.23 10^6/uL (3.63-4.92); Red Cell Distribution Width 17.9 % (12-17); White Blood Count 5.6 10^3/uL (3.8-11.8)
[2023-06-12 04:39] LABS: Calcium 7.5 mg/dL (8.6-10.3); Potassium 3.7 mmol/L (3.5-5.0)
[2023-06-12 04:45] LABS: Creatinine, Serum 0.66 mg/dL (0.51-0.95); eGFR CKD-EPI 112.9 (>60)
[2023-06-12] MEDS: Levothyroxine 100 MCG/5 ML VIAL IV SCH (05:58)
[2023-06-12] MEDS: Enoxaparin 40 MG/0.4 ML SYR SUBCUT SCH (05:58)
[2023-06-12] MEDS ORDERED: Levothyroxine 100 MCG/5 ML VIAL IV SCH (06:00)
[2023-06-12] MEDS ORDERED: Potassium EFFERVES 25 meq TAB PO ONE (06:39)
[2023-06-12] MEDS: Calcium/Vitamin D TAB 250/125 TAB PO SCH ×2 (08:32→20:14)
[2023-06-12] MEDS: Miconazole 2% Top Powder BTL TOPICAL SCH ×2 (08:34→22:05)
[2023-06-12] MEDS ORDERED: Vancomycin Trough Check NOTE FOLLOW UP ONE (10:00)
[2023-06-12] MEDS: Vancomycin 1,250 MG in NS 0.9% 250 ml 250 ML IVPB SCH (11:00)
[2023-06-12] MEDS ORDERED: Ondansetron 4 mg VIAL 2 MG/ML 2 ml VIAL ONE (12:43)
[2023-06-12] MEDS ORDERED: Ondansetron 4 mg VIAL 2 MG/ML 2 ml VIAL IV PRN (12:43)
[2023-06-13] MEDS: Cefepime 2 GM in Dextrose 2 GM/50 ML BAG IV SCH ×2 (00:52→13:33)
[2023-06-13] MEDS: Enoxaparin 40 MG/0.4 ML SYR SUBCUT SCH (06:12)
[2023-06-13 06:38] LABS: ABS Eosinophils 0.1 10^3/uL (0.0-0.5); ABS Lymphocytes 2.2 10^3/uL (1.0-4.8); ABS Monocytes 0.6 10^3/uL (0.0-0.9); ABS Neutrophils 3.8 10^3/uL (1.5-7.6); ABS Nucleated RBC 0.01 10^3/ul; Hematocrit 30.2 % (35-45); Hemoglobin 10.5 g/dL (11.5-14.3); Mean Corpuscular Hemoglobin 30.6 pg (27-33); Mean Corpuscular Hgb Conc 34.7 g/dL (31-36); Mean Corpuscular Volume 88.3 fL (80-97); Mean Platelet Volume 7.6 fL (7.5-11.2); Nucleated Red Blood Cells % 0.1 /100 WBC (0.0-0.4); Platelet Count 189 10^3/uL (150-450); Red Blood Count 3.42 10^6/uL (3.63-4.92); Red Cell Distribution Width 18.3 % (12-17); White Blood Count 6.8 10^3/uL (3.8-11.8)
[2023-06-13 06:53] LABS: Creatinine, Serum 0.61 mg/dL (0.51-0.95); Potassium 3.6 mmol/L (3.5-5.0); eGFR CKD-EPI 115.1 (>60)
[2023-06-13] MEDS: Calcium/Vitamin D TAB 250/125 TAB PO SCH (08:40)
[2023-06-13] MEDS: Miconazole 2% Top Powder BTL TOPICAL SCH (08:42)
[2023-06-13 10:06] VITALS: BP 102/66
== END 2023-06-13 14:15 | disposition home or self-care (01) | DRG 720 ==
LOC: ED 17:41 → SUATTDRO 23:57 → EDHOLD 23:57 → ICU 06-11 07:10 → SSU 06-12 18:38
PROVIDERS: ADMIT Surgery Surgical Critical Care; ATTEND Internal Medicine

== ENCOUNTER 2024-07-10 09:14 | Inpatient (IN) ==
[2024-07-10] MEDS: Lactated Ringers 1000 ml BAG 1,000 ML IV ONE ×2 (10:15→14:05)
[2024-07-10 10:24] LABS: ABS Basophils 0.1 10^3/uL (0.0-0.1); ABS Eosinophils 0.1 10^3/uL (0.0-0.5); ABS Monocytes 0.9 10^3/uL (0.0-0.9); ABS Neutrophils 17.8 10^3/uL (1.5-7.6); Eosinophil % 0.3 %; Hematocrit 24.6 % (35-45); Hemoglobin 7.9 g/dL (11.5-14.3); Mean Corpuscular Hemoglobin 28.7 pg (27-33); Mean Corpuscular Hgb Conc 32.1 g/dL (31-36); Mean Corpuscular Volume 89.4 fL (80-97); Mean Platelet Volume 7.7 fL (7.5-11.2); Platelet Count 303 10^3/uL (150-450); Red Blood Count 2.75 10^6/uL (3.63-4.92); Red Cell Distribution Width 16.2 % (12-17); White Blood Count 19.8 10^3/uL (3.8-11.8)
[2024-07-10 10:41] LABS: Urine Appearance Turbid; Urine Bilirubin Negative (Negative); Urine Blood 1+ (Negative); Urine Color Yellow; Urine Glucose Negative (Negative); Urine Ketones Negative (Negative); Urine Nitrite Negative (Negative); Urine Protein 2+ (>=100 mg/dL) (Negative); Urine Specific Gravity 1.011 (1.002-1.030); Urine Urobilinogen Negative (Negative); Urine pH 6.5 (5.0-8.0)
[2024-07-10 10:42] LABS: Activated Partial Thrombo Time 29.4 seconds (26.0-38.0); INR 1.61 (0.85-1.14)
[2024-07-10 10:57] LABS: Budding Yeast Present /HPF (Absent); Urine Bacteria Absent /HPF (Absent); Urine Red Blood Cell 3+(>10/hpf) /HPF (0-Trace); Urine Squamous Epithelial Cell Present /HPF (Absent); Urine White Blood Cell 3+(>20/hpf) /HPF (0-Trace)
[2024-07-10 11:07] LABS: Albumin 2.9 g/dL (3.2-5.2); Albumin/Globulin Ratio 0.8 (1-3); C Reactive Protein 228.23 mg/L (<8.01); Calcium 8.3 mg/dL (8.6-10.3); Creatinine, Serum 3.98 mg/dL (0.51-0.95); Globulin 3.6 g/dL (2-4); Potassium 3.7 mmol/L (3.5-5.0); Total Bilirubin 1.1 mg/dL (0.2-1.0); Total Protein 6.5 g/dL (6.4-8.9); eGFR CKD-EPI 13.7 (>60)
[2024-07-10 11:54] LABS: High Sensitivity Troponin 1 Hr 19 pg/mL (<15)
[2024-07-10] MEDS: Cefepime 1 GM in Dextrose 1 GM/50 ML BAG IV ONE (14:04)
[2024-07-10] MEDS: Morphine 4 MG/ML VIAL (1 ml) IV ONE (14:28)
[2024-07-10] MEDS: Ondansetron 4 mg VIAL 2 MG/ML 2 ml VIAL IV ONE (14:28)
[2024-07-10] MEDS ORDERED: Morphine 2 MG/ML SYRINGE IV PRN (17:49)
[2024-07-10] MEDS: Cefepime 1 GM in Dextrose 1 GM/50 ML BAG IV SCH (18:25)
[2024-07-10] MEDS: NS 0.9% 1000 ml BAG 1,000 ML IV SCH (18:25)
[2024-07-10] MEDS: Heparin 5000 UNITS/ML 1 mL VIAL SUBCUT SCH (19:41)
[2024-07-10] MEDS: HYDROmorphone 0.5 MG/0.5 ML SYRINGE IV SLOW PU PRN (19:43)
[2024-07-10] MEDS: Prochlorperazine 5 mg/ml 2 ml VIAL (10 mg) IV PRN (19:44)
[2024-07-10] MEDS ORDERED: Lorazepam PYXIS KEY PRN (20:10)
[2024-07-10] MEDS ORDERED: SUMAtriptan Subcut 6 MG/0.5 ML VIAL SUBCUT PRN (20:17)
[2024-07-11] MEDS: Levothyroxine 100 MCG/5 ML VIAL IV SCH (05:24)
[2024-07-11] MEDS ORDERED: LEVOTHYROXINE IV SCH (09:00)
[2024-07-11] MEDS ORDERED: D5W IV SCH (09:00)
[2024-07-11 11:05] LABS: ABS Lymphocytes 0.8 10^3/uL (1.0-4.8); ABS Neutrophils 18.4 10^3/uL (1.5-7.6); Eosinophil % 0.2 %; Hematocrit 21.4 % (35-45); Hemoglobin 6.9 g/dL (11.5-14.3); Lymphocyte % 4.1 %; Mean Corpuscular Hemoglobin 29.2 pg (27-33); Mean Corpuscular Hgb Conc 32.4 g/dL (31-36); Mean Corpuscular Volume 90.1 fL (80-97); Mean Platelet Volume 7.7 fL (7.5-11.2); Platelet Count 233 10^3/uL (150-450); Red Blood Count 2.37 10^6/uL (3.63-4.92); Red Cell Distribution Width 15.7 % (12-17); White Blood Count 20.3 10^3/uL (3.8-11.8)
[2024-07-11] MEDS: Alteplase (CATHFLO) 2 MG VIAL IV ONE (12:24)
[2024-07-11 12:36] LABS: Albumin 2.3 g/dL (3.2-5.2); Albumin/Globulin Ratio 0.7 (1-3); Calcium 7.7 mg/dL (8.6-10.3); Creatinine, Serum 4.6 mg/dL (0.51-0.95); Globulin 3.3 g/dL (2-4); Magnesium 1.6 mg/dL (1.9-2.7); Potassium 3.8 mmol/L (3.5-5.0); Total Bilirubin 0.9 mg/dL (0.2-1.0); Total Protein 5.6 g/dL (6.4-8.9); eGFR CKD-EPI 11.6 (>60)
[2024-07-11] MEDS: Calcium Carb (TUMS) 500 mg CHEW TAB PO PRN (14:04)
[2024-07-12 06:00] LABS: ABS Basophils 0.1 10^3/uL (0.0-0.1); ABS Eosinophils 0.1 10^3/uL (0.0-0.5); ABS Lymphocytes 1.1 10^3/uL (1.0-4.8); ABS Monocytes 0.7 10^3/uL (0.0-0.9); ABS Neutrophils 12.7 10^3/uL (1.5-7.6); Eosinophil % 0.8 %; Hematocrit 21.5 % (35-45); Hemoglobin 6.9 g/dL (11.5-14.3); Lymphocyte % 7.4 %; Mean Corpuscular Hemoglobin 29.1 pg (27-33); Mean Corpuscular Hgb Conc 32.3 g/dL (31-36); Mean Corpuscular Volume 89.9 fL (80-97); Mean Platelet Volume 7.6 fL (7.5-11.2); Platelet Count 226 10^3/uL (150-450); Red Blood Count 2.39 10^6/uL (3.63-4.92); Red Cell Distribution Width 15.5 % (12-17); White Blood Count 14.7 10^3/uL (3.8-11.8)
[2024-07-12 06:51] LABS: Albumin 2.2 g/dL (3.2-5.2); Albumin/Globulin Ratio 0.8 (1-3); Calcium 7.5 mg/dL (8.6-10.3); Creatinine, Serum 5.24 mg/dL (0.51-0.95); Globulin 2.7 g/dL (2-4); Magnesium 1.6 mg/dL (1.9-2.7); Phosphorus 4.2 mg/dL (2.5-5.0); Potassium 3.8 mmol/L (3.5-5.0); Total Bilirubin 0.6 mg/dL (0.2-1.0); Total Protein 4.9 g/dL (6.4-8.9); eGFR CKD-EPI 9.9 (>60)
[2024-07-12] MEDS: Acetaminophen IV 1 GM/100ML 1,000 MG/100 ML BAG IV PRN (09:45)
[2024-07-12] MEDS: Magnesium Sulf 4 GM/100 ML IV 4,000 MG/100 ML BAG IVPB ONE (09:45)
[2024-07-12] MEDS: LORazepam 2 mg VIAL 1 ml IV PUSH PRN (10:33)
[2024-07-12] MEDS: Cefepime 1 GM in Dextrose 1 GM/50 ML BAG IV SCH (13:44)
[2024-07-12] MEDS: HYDROmorphone 0.5 MG/0.5 ML SYRINGE IV SLOW PU ONE (19:18)
[2024-07-12] MEDS: fentaNYL 100 mcg/2 ml 50 MCG/ML VIAL ONE (19:52)
[2024-07-13 06:45] LABS: Hematocrit 24.5 % (35-45); Hemoglobin 7.9 g/dL (11.5-14.3); Mean Corpuscular Hgb Conc 32.3 g/dL (31-36); Mean Corpuscular Volume 89.9 fL (80-97); Mean Platelet Volume 7.6 fL (7.5-11.2); Platelet Count 278 10^3/uL (150-450); Red Blood Count 2.72 10^6/uL (3.63-4.92); Red Cell Distribution Width 15.6 % (12-17); White Blood Count 26.5 10^3/uL (3.8-11.8)
[2024-07-13 06:47] LABS: INR 2.04 (0.85-1.14)
[2024-07-13 06:53] LABS: Calcium 7.3 mg/dL (8.6-10.3); Creatinine, Serum 5.53 mg/dL (0.51-0.95); Magnesium 1.5 mg/dL (1.9-2.7); Phosphorus 3.5 mg/dL (2.5-5.0); Potassium 3.5 mmol/L (3.5-5.0); eGFR CKD-EPI 9.3 (>60)
[2024-07-13 08:14] LABS: ABS Eosinophils 0.1 10^3/uL (0.0-0.5); ABS Monocytes 1.3 10^3/uL (0.0-0.9); ABS Neutrophils 24.1 10^3/uL (1.5-7.6); Eosinophil % 0.2 %; Lymphocyte % 3.8 %
[2024-07-13 09:38] LABS: Albumin 2.1 g/dL (3.2-5.2); Albumin/Globulin Ratio 0.7 (1-3); Direct Bilirubin 0.2 mg/dL (0.03-0.18); Globulin 3.1 g/dL (2-4); Indirect Bilirubin 0.8 mg/dL (0.3-1.0); Total Protein 5.2 g/dL (6.4-8.9)
[2024-07-13] MEDS: Magnesium Sulf 4 GM/100 ML IV 4,000 MG/100 ML BAG IVPB ONE (11:20)
[2024-07-13] MEDS: Magnesium Sulfate 2 gm BAG 2 GM/50 ML BAG IVPB ONE (11:41)
[2024-07-13 12:27] LABS: Hematocrit 25.4 % (35-45); Hemoglobin 8.3 g/dL (11.5-14.3); Mean Corpuscular Hemoglobin 29.2 pg (27-33); Mean Corpuscular Hgb Conc 32.6 g/dL (31-36); Mean Corpuscular Volume 89.7 fL (80-97); Mean Platelet Volume 7.6 fL (7.5-11.2); Platelet Count 278 10^3/uL (150-450); Red Blood Count 2.83 10^6/uL (3.63-4.92); Red Cell Distribution Width 15.6 % (12-17); White Blood Count 23.2 10^3/uL (3.8-11.8)
[2024-07-13 12:35] LABS: ABS Basophils 0.1 10^3/uL (0.0-0.1); ABS Eosinophils 0.1 10^3/uL (0.0-0.5); ABS Monocytes 1.1 10^3/uL (0.0-0.9); ABS Neutrophils 20.9 10^3/uL (1.5-7.6); Eosinophil % 0.3 %; Lymphocyte % 4.3 %
[2024-07-13 12:57] LABS: Calcium 7.1 mg/dL (8.6-10.3); Creatinine, Serum 5.69 mg/dL (0.51-0.95); Magnesium 1.5 mg/dL (1.9-2.7); Potassium 3.6 mmol/L (3.5-5.0)
[2024-07-13] MEDS: HYDROmorphone 0.5 MG/0.5 ML SYRINGE IV SLOW PU PRN (14:41)
[2024-07-13] MEDS: Lactated Ringers 1000 ml BAG 500 ML IV ONE ×3 (16:31→16:44)
[2024-07-13 17:14] LABS: Urine Appearance Clear; Urine Bilirubin Negative (Negative); Urine Blood 3+ (Negative); Urine Color Colorless; Urine Glucose Negative (Negative); Urine Ketones Negative (Negative); Urine Nitrite Negative (Negative); Urine Protein 1+ (>=30 mg/dL) (Negative); Urine Specific Gravity 1.008 (1.002-1.030); Urine Urobilinogen Negative (Negative); Urine pH 5.5 (5.0-8.0)
[2024-07-13 17:40] LABS: Urine Appearance Clear; Urine Bilirubin Negative (Negative); Urine Blood 2+ (Negative); Urine Color Light-Yellow; Urine Glucose Negative (Negative); Urine Ketones Negative (Negative); Urine Nitrite Negative (Negative); Urine Protein 1+ (>=30 mg/dL) (Negative); Urine Specific Gravity 1.009 (1.002-1.030); Urine Urobilinogen Negative (Negative); Urine pH 5.5 (5.0-8.0)
[2024-07-13 17:46] LABS: Urine Bacteria 1+ /HPF (Absent); Urine Red Blood Cell 3+(>10/hpf) /HPF (0-Trace); Urine White Blood Cell 3+(>20/hpf) /HPF (0-Trace)
[2024-07-14 07:21] LABS: Hematocrit 24.9 % (35-45); Hemoglobin 8.1 g/dL (11.5-14.3); Mean Corpuscular Hemoglobin 29.2 pg (27-33); Mean Corpuscular Hgb Conc 32.5 g/dL (31-36); Mean Corpuscular Volume 89.7 fL (80-97); Mean Platelet Volume 7.4 fL (7.5-11.2); Platelet Count 303 10^3/uL (150-450); Red Blood Count 2.77 10^6/uL (3.63-4.92); Red Cell Distribution Width 16.1 % (12-17); White Blood Count 23.2 10^3/uL (3.8-11.8)
[2024-07-14 07:28] LABS: ABS Basophils 0.1 10^3/uL (0.0-0.1); ABS Eosinophils 0.1 10^3/uL (0.0-0.5); ABS Lymphocytes 1.2 10^3/uL (1.0-4.8); ABS Monocytes 1.4 10^3/uL (0.0-0.9); ABS Neutrophils 20.5 10^3/uL (1.5-7.6); Eosinophil % 0.3 %
[2024-07-14 07:53] LABS: Calcium 7.6 mg/dL (8.6-10.3); Creatinine, Serum 6.17 mg/dL (0.51-0.95); Magnesium 2.1 mg/dL (1.9-2.7); Potassium 3.5 mmol/L (3.5-5.0); eGFR CKD-EPI 8.1 (>60)
[2024-07-14] MEDS: NS 0.9% 1000 ml BAG 1,000 ML IV SCH (08:48)
[2024-07-14 10:53] LABS: C Reactive Protein 225.62 mg/L (<8.01)
[2024-07-14] MEDS ORDERED: Polyethylene Glycol 3350 17 GM PACKET PO PRN (11:12)
[2024-07-14 12:31] LABS: Erythrocyte Sed Rate 100 mm/Hr (0-19)
[2024-07-14] MEDS: Senna TAB 8.6 mg TAB PO PRN (13:25)
[2024-07-14] MEDS: Senna TAB 8.6 mg TAB PO SCH (13:44)
[2024-07-14] MEDS: Polyethylene Glycol 3350 17 GM PACKET PO SCH (14:22)
[2024-07-15 05:57] LABS: ABS Eosinophils 0.1 10^3/uL (0.0-0.5); ABS Neutrophils 14.5 10^3/uL (1.5-7.6); Eosinophil % 0.7 %; Hematocrit 23.5 % (35-45); Hemoglobin 7.6 g/dL (11.5-14.3); Lymphocyte % 5.8 %; Mean Corpuscular Hemoglobin 29.1 pg (27-33); Mean Corpuscular Hgb Conc 32.4 g/dL (31-36); Mean Corpuscular Volume 89.9 fL (80-97); Mean Platelet Volume 7.2 fL (7.5-11.2); Platelet Count 292 10^3/uL (150-450); Red Blood Count 2.61 10^6/uL (3.63-4.92); Red Cell Distribution Width 16.2 % (12-17); White Blood Count 16.7 10^3/uL (3.8-11.8)
[2024-07-15 06:28] LABS: Calcium 7.3 mg/dL (8.6-10.3); Creatinine, Serum 5.59 mg/dL (0.51-0.95); Magnesium 1.9 mg/dL (1.9-2.7); Potassium 3.1 mmol/L (3.5-5.0); eGFR CKD-EPI 9.1 (>60)
[2024-07-15] MEDS: Calcium Carb (TUMS) 500 mg CHEW TAB PO SCH (10:02)
[2024-07-15] MEDS: Potassium Chlor 20 meq TAB.ER PO ONE (10:04)
[2024-07-15] MEDS ORDERED: KCL 20 MEQ/100 ML IVPREMIX 20 MEQ/100 ML BAG IV SCH (11:00)
[2024-07-15] MEDS: POTASSIUM PHOSPHATE IVPB ONE (11:05)
[2024-07-15] MEDS: NS 0.9% IVPB ONE (11:05)
[2024-07-15] MEDS ORDERED: KCL 20 MEQ/100 ML IVPREMIX 20 MEQ/100 ML BAG IV ONE (13:44)
[2024-07-15] MEDS ORDERED: KCL premix 10 MEQ/50 ML x 2 BAGS IV SCH (13:44)
[2024-07-15] MEDS: KCL premix 10 MEQ/50 ML x 2 BAGS IV SCH (14:50)
[2024-07-15] MEDS: KCL 20 MEQ/100 ML IVPREMIX 20 MEQ/100 ML BAG IV ONE (16:41)
[2024-07-16 06:15] LABS: Calcium 7.3 mg/dL (8.6-10.3); Creatinine, Serum 4.39 mg/dL (0.51-0.95); Potassium 3.6 mmol/L (3.5-5.0); eGFR CKD-EPI 12.2 (>60)
[2024-07-16 09:41] LABS: Magnesium 1.6 mg/dL (1.9-2.7)
[2024-07-16 09:42] LABS: ABS Eosinophils 0.1 10^3/uL (0.0-0.5); ABS Monocytes 1.2 10^3/uL (0.0-0.9); Eosinophil % 0.6 %; Hematocrit 23.2 % (35-45); Hemoglobin 7.2 g/dL (11.5-14.3); Lymphocyte % 6.6 %; Mean Corpuscular Hemoglobin 28.1 pg (27-33); Mean Corpuscular Hgb Conc 31.2 g/dL (31-36); Mean Corpuscular Volume 90.2 fL (80-97); Mean Platelet Volume 7.6 fL (7.5-11.2); Platelet Count 293 10^3/uL (150-450); Red Blood Count 2.57 10^6/uL (3.63-4.92); Red Cell Distribution Width 16.4 % (12-17); White Blood Count 15.3 10^3/uL (3.8-11.8)
[2024-07-16] MEDS ORDERED: KCL 20 MEQ/100 ML IVPREMIX 20 MEQ/100 ML BAG IV SCH ×2 (10:00→13:00)
[2024-07-16] MEDS: Heparin 5000 UNITS/ML 1 mL VIAL SUBCUT SCH (10:48)
[2024-07-16] MEDS: KCL premix 10 MEQ/50 ML x 4 RUNS IV SCH (10:49)
[2024-07-16] MEDS: Lactated Ringers 1000 ml BAG 1,000 ML IV ONE (10:49)
[2024-07-16] MEDS: Lactated Ringers 1000 ml BAG 1,000 ML IV SCH (13:29)
[2024-07-17 06:31] LABS: ABS Eosinophils 0.1 10^3/uL (0.0-0.5); ABS Lymphocytes 1.4 10^3/uL (1.0-4.8); ABS Monocytes 1.4 10^3/uL (0.0-0.9); ABS Neutrophils 13.7 10^3/uL (1.5-7.6); Eosinophil % 0.6 %; Hematocrit 21.6 % (35-45); Hemoglobin 7.1 g/dL (11.5-14.3); Lymphocyte % 8.3 %; Mean Corpuscular Hgb Conc 32.8 g/dL (31-36); Mean Corpuscular Volume 88.5 fL (80-97); Mean Platelet Volume 7.2 fL (7.5-11.2); Platelet Count 274 10^3/uL (150-450); Red Blood Count 2.44 10^6/uL (3.63-4.92); Red Cell Distribution Width 16.2 % (12-17); White Blood Count 16.7 10^3/uL (3.8-11.8)
[2024-07-17 06:49] LABS: Creatinine, Serum 2.66 mg/dL (0.51-0.95); Magnesium 1.2 mg/dL (1.9-2.7); Phosphorus 2.3 mg/dL (2.5-5.0); Potassium 3.7 mmol/L (3.5-5.0); eGFR CKD-EPI 22.3 (>60)
[2024-07-17] MEDS: Magnesium Sulf 4 GM/100 ML IV 4,000 MG/100 ML BAG IVPB ONE (08:08)
[2024-07-17] MEDS: Potassium Phosphate IV 15 MMOL in NS 0.9% 250 ml 250 ML IVPB ONE (10:36)
[2024-07-17] MEDS: Lactated Ringers 1000 ml BAG 1,000 ML IV SCH (12:26)
[2024-07-18 06:13] LABS: Hematocrit 22.5 % (35-45); Hemoglobin 7.5 g/dL (11.5-14.3); Mean Corpuscular Hemoglobin 29.3 pg (27-33); Mean Corpuscular Hgb Conc 33.2 g/dL (31-36); Mean Corpuscular Volume 88.3 fL (80-97); Mean Platelet Volume 7.2 fL (7.5-11.2); Platelet Count 274 10^3/uL (150-450); Red Blood Count 2.55 10^6/uL (3.63-4.92); Red Cell Distribution Width 15.8 % (12-17); White Blood Count 19.9 10^3/uL (3.8-11.8)
[2024-07-18 06:24] LABS: ABS Monocytes 1.6 10^3/uL (0.0-0.9); ABS Neutrophils 17.3 10^3/uL (1.5-7.6); Eosinophil % 0.1 %; Lymphocyte % 4.8 %
[2024-07-18 06:46] LABS: Calcium 6.9 mg/dL (8.6-10.3); Creatinine, Serum 1.71 mg/dL (0.51-0.95); Magnesium 1.5 mg/dL (1.9-2.7); Phosphorus 2.5 mg/dL (2.5-5.0); Potassium 3.6 mmol/L (3.5-5.0); eGFR CKD-EPI 37.9 (>60)
[2024-07-18] MEDS: KCL 20 MEQ/100 ML IVPREMIX 20 MEQ/100 ML BAG IV ONE (07:45)
[2024-07-18] MEDS ORDERED: KCL 20 MEQ/100 ML IVPREMIX 20 MEQ/100 ML BAG IV ONE ×2 (07:55→09:00)
[2024-07-18] MEDS: Magnesium Sulf 4 GM/100 ML IV 4,000 MG/100 ML BAG IVPB ONE (08:43)
[2024-07-18 09:46] VITALS: BP 112/73
== END 2024-07-18 12:50 | disposition home or self-care (01) | DRG 443 ==
LOC: ED 09:14 → EDHOLD 09:14 → SSU 17:24 → SUATTDRO 07-11 07:00
PROVIDERS: ADMIT Internal Medicine; ATTEND Internal Medicine

== ENCOUNTER 2024-08-04 14:31 | Inpatient (IN) ==
[2024-08-04 15:41] LABS: Hematocrit 20.1 % (35-45); Hemoglobin 6.5 g/dL (11.5-14.3); Mean Corpuscular Hemoglobin 28.1 pg (27-33); Mean Corpuscular Hgb Conc 32.2 g/dL (31-36); Mean Corpuscular Volume 87.3 fL (80-97); Mean Platelet Volume 7.1 fL (7.5-11.2); Platelet Count 422 10^3/uL (150-450); Red Cell Distribution Width 15.5 % (12-17); White Blood Count 29.8 10^3/uL (3.8-11.8)
[2024-08-04 15:47] LABS: ABS Lymphocytes 1.9 10^3/uL (1.0-4.8); ABS Monocytes 1.2 10^3/uL (0.0-0.9); ABS Neutrophils 26.6 10^3/uL (1.5-7.6); Eosinophil % 0.1 %; Lymphocyte % 6.3 %
[2024-08-04 15:54] LABS: INR 1.64 (0.85-1.14)
[2024-08-04 16:31] LABS: Albumin 2.6 g/dL (3.2-5.2); Albumin/Globulin Ratio 0.9 (1-3); C Reactive Protein 176.45 mg/L (<8.01); Creatinine, Serum 0.75 mg/dL (0.51-0.95); Potassium 3.6 mmol/L (3.5-5.0); Total Bilirubin 1.5 mg/dL (0.2-1.0); Total Protein 5.6 g/dL (6.4-8.9); eGFR CKD-EPI 101.2 (>60)
[2024-08-04] MEDS: Lactated Ringers SEPSIS* BAG 1,780 ML IV ONE (16:40)
[2024-08-04] MEDS: Iohexol 350 (CONTRAST) 500 ML MDV IV ONE (16:51)
[2024-08-04 17:10] LABS: High Sensitivity Troponin 1 Hr 11 pg/mL (<15)
[2024-08-04 19:23] LABS: Magnesium 2.2 mg/dL (1.9-2.7)
[2024-08-04 19:40] LABS: TSH Ultra Thyroid Stim Horm 0.05 mcIU/mL (0.34-5.60)
[2024-08-04] MEDS: cefTRIAXone 1 gm/50 mL D5W 1 GM/50 ML BAG IV SCH (20:34)
[2024-08-04] MEDS: Enoxaparin 40 MG/0.4 ML SYR SUBCUT SCH (20:34)
[2024-08-04] MEDS: metroNIDAZOLE IV 500 MG/100ML 500 MG/100 ML BAG IVPB SCH (20:39)
[2024-08-04 22:00] LABS: Hemoglobin 7.8 g/dL (11.5-14.3); Mean Corpuscular Hemoglobin 28.3 pg (27-33); Mean Corpuscular Hgb Conc 32.7 g/dL (31-36); Mean Corpuscular Volume 86.7 fL (80-97); Platelet Count 373 10^3/uL (150-450); Red Blood Count 2.77 10^6/uL (3.63-4.92); White Blood Count 23.2 10^3/uL (3.8-11.8)
[2024-08-04 22:30] LABS: ABS Basophils 0.1 10^3/uL (0.0-0.1); ABS Eosinophils 0.1 10^3/uL (0.0-0.5); ABS Lymphocytes 1.2 10^3/uL (1.0-4.8); ABS Neutrophils 20.9 10^3/uL (1.5-7.6); ABS Nucleated RBC 0.01 10^3/ul; Eosinophil % 0.3 %; Lymphocyte % 5.3 %
[2024-08-05 07:16] LABS: Hematocrit 23.8 % (35-45); Hemoglobin 7.8 g/dL (11.5-14.3); Mean Corpuscular Hemoglobin 28.3 pg (27-33); Mean Corpuscular Hgb Conc 32.6 g/dL (31-36); Mean Corpuscular Volume 86.6 fL (80-97); Mean Platelet Volume 7.5 fL (7.5-11.2); Platelet Count 344 10^3/uL (150-450); Red Blood Count 2.74 10^6/uL (3.63-4.92); Red Cell Distribution Width 15.4 % (12-17); White Blood Count 25.1 10^3/uL (3.8-11.8)
[2024-08-05 07:36] LABS: ABS Basophils 0.1 10^3/uL (0.0-0.1); ABS Eosinophils 0.1 10^3/uL (0.0-0.5); ABS Lymphocytes 1.3 10^3/uL (1.0-4.8); ABS Monocytes 1.2 10^3/uL (0.0-0.9); ABS Neutrophils 22.5 10^3/uL (1.5-7.6); ABS Nucleated RBC 0.01 10^3/ul; Eosinophil % 0.3 %; Lymphocyte % 5.1 %
[2024-08-05 07:37] LABS: INR 1.79 (0.85-1.14)
[2024-08-05 07:40] LABS: Albumin 2.5 g/dL (3.2-5.2); Albumin/Globulin Ratio 0.9 (1-3); Creatinine, Serum 0.63 mg/dL (0.51-0.95); Globulin 2.9 g/dL (2-4); Magnesium 1.6 mg/dL (1.9-2.7); Potassium 3.1 mmol/L (3.5-5.0); Total Bilirubin 1.8 mg/dL (0.2-1.0); Total Protein 5.4 g/dL (6.4-8.9); eGFR CKD-EPI 112.8 (>60)
[2024-08-05] MEDS: Lactated Ringers 1000 ml BAG 1,000 ML IV SCH (10:05)
[2024-08-05] MEDS: Potassium Chlor 20 meq TAB.ER PO ONE (10:05)
[2024-08-05] MEDS: KCL 20 MEQ/100 ML IVPREMIX 20 MEQ/100 ML BAG IV ONE (10:06)
[2024-08-05] MEDS: Magnesium Sulfate 2 gm BAG 2 GM/50 ML BAG IVPB ONE (11:19)
[2024-08-05] MEDS: KCL 20 MEQ/100 ML IVPREMIX 20 MEQ/100 ML BAG IV SCH (13:35)
[2024-08-05] MEDS: fentaNYL 100 mcg/2 ml 50 MCG/ML VIAL ONE (20:56)
[2024-08-06 05:29] LABS: ABS Basophils 0.1 10^3/uL (0.0-0.1); ABS Eosinophils 0.1 10^3/uL (0.0-0.5); ABS Lymphocytes 1.5 10^3/uL (1.0-4.8); ABS Monocytes 0.8 10^3/uL (0.0-0.9); ABS Neutrophils 17.3 10^3/uL (1.5-7.6); Eosinophil % 0.5 %; Hematocrit 22.5 % (35-45); Hemoglobin 7.3 g/dL (11.5-14.3); Lymphocyte % 7.5 %; Mean Corpuscular Hemoglobin 28.3 pg (27-33); Mean Corpuscular Hgb Conc 32.6 g/dL (31-36); Mean Corpuscular Volume 86.6 fL (80-97); Mean Platelet Volume 7.2 fL (7.5-11.2); Platelet Count 358 10^3/uL (150-450); White Blood Count 19.8 10^3/uL (3.8-11.8)
[2024-08-06 06:06] LABS: Calcium 7.7 mg/dL (8.6-10.3); Creatinine, Serum 0.55 mg/dL (0.51-0.95); Magnesium 1.4 mg/dL (1.9-2.7); Potassium 3.8 mmol/L (3.5-5.0); eGFR CKD-EPI 116.6 (>60)
[2024-08-06] MEDS: Calcium Carb (TUMS) 500 mg CHEW TAB PO ONE (06:13)
[2024-08-06] MEDS: Magnesium Sulf 4 GM/100 ML IV 4,000 MG/100 ML BAG IVPB ONE (09:16)
[2024-08-06] MEDS ORDERED: Vancomycin per Pharmacy 1 EA NOTE FOLLOW UP SCH (15:00)
[2024-08-06] MEDS: Vancomycin 1,000 MG in NS 0.9% 250 ml 250 ML IVPB ONE (16:06)
[2024-08-06] MEDS: Prochlorperazine 5 mg/ml 2 ml VIAL (10 mg) IV PRN (16:16)
[2024-08-07] MEDS: Vancomycin 1000 MG in NS 0.9% 250 ML IVPB SCH (00:14)
[2024-08-07 06:04] LABS: Hematocrit 23.8 % (35-45); Hemoglobin 7.8 g/dL (11.5-14.3); Mean Corpuscular Hemoglobin 28.8 pg (27-33); Mean Corpuscular Hgb Conc 32.8 g/dL (31-36); Mean Corpuscular Volume 87.8 fL (80-97); Mean Platelet Volume 7.4 fL (7.5-11.2); Platelet Count 350 10^3/uL (150-450); Red Blood Count 2.71 10^6/uL (3.63-4.92); Red Cell Distribution Width 15.2 % (12-17)
[2024-08-07 06:13] LABS: ABS Basophils 0.1 10^3/uL (0.0-0.1); ABS Eosinophils 0.1 10^3/uL (0.0-0.5); ABS Lymphocytes 1.7 10^3/uL (1.0-4.8); Eosinophil % 0.6 %; Lymphocyte % 7.6 %
[2024-08-07 06:22] LABS: Albumin 2.2 g/dL (3.2-5.2); Albumin/Globulin Ratio 0.8 (1-3); Calcium 7.8 mg/dL (8.6-10.3); Creatinine, Serum 0.53 mg/dL (0.51-0.95); Direct Bilirubin 0.1 mg/dL (0.03-0.18); Globulin 2.7 g/dL (2-4); Indirect Bilirubin 0.5 mg/dL (0.3-1.0); Potassium 3.6 mmol/L (3.5-5.0); Total Bilirubin 0.6 mg/dL (0.2-1.0); Total Protein 4.9 g/dL (6.4-8.9); eGFR CKD-EPI 117.6 (>60)
[2024-08-07] MEDS: Lactated Ringers 1000 ml BAG 1,000 ML IV SCH (08:28)
[2024-08-07 12:40] LABS: Magnesium 1.5 mg/dL (1.9-2.7)
[2024-08-07] MEDS: Vancomycin Trough Check NOTE FOLLOW UP ONE (15:35)
[2024-08-08 05:55] LABS: ABS Basophils 0.1 10^3/uL (0.0-0.1); ABS Eosinophils 0.1 10^3/uL (0.0-0.5); ABS Lymphocytes 1.5 10^3/uL (1.0-4.8); ABS Monocytes 1.1 10^3/uL (0.0-0.9); ABS Neutrophils 16.4 10^3/uL (1.5-7.6); Eosinophil % 0.6 %; Hematocrit 23.3 % (35-45); Hemoglobin 7.6 g/dL (11.5-14.3); Mean Corpuscular Hemoglobin 28.6 pg (27-33); Mean Corpuscular Hgb Conc 32.5 g/dL (31-36); Mean Corpuscular Volume 88.1 fL (80-97); Mean Platelet Volume 7.1 fL (7.5-11.2); Platelet Count 335 10^3/uL (150-450); Red Blood Count 2.64 10^6/uL (3.63-4.92); Red Cell Distribution Width 15.6 % (12-17); White Blood Count 19.3 10^3/uL (3.8-11.8)
[2024-08-08 06:35] LABS: Calcium 7.9 mg/dL (8.6-10.3); Creatinine, Serum 0.52 mg/dL (0.51-0.95); Magnesium 1.2 mg/dL (1.9-2.7); Potassium 3.5 mmol/L (3.5-5.0); Vancomycin Random 12.3 mcg/mL; eGFR CKD-EPI 118.2 (>60)
[2024-08-08 08:17] LABS: Phosphorus 2.7 mg/dL (2.5-5.0)
[2024-08-08 09:50] VITALS: BP 90/52
[2024-08-08] MEDS: Vancomycin 750 MG in NS 0.9% 250 ML IVPB SCH (10:04)
[2024-08-08] MEDS: Magnesium Sulf 4 GM/100 ML IV 4,000 MG/100 ML BAG IVPB ONE (10:05)
[2024-08-08 11:01] LABS: C Reactive Protein 139.33 mg/L (<8.01)
[2024-08-08] MEDS: Amoxicillin/Clavul ORALSYR 80 MG/ML (400 MG/5 ML) PO SCH (11:18)
[2024-08-08] MEDS: Vancomycin Random Level NOTE FOLLOW UP ONE (11:43)
[2024-08-10] MEDS ORDERED: Vancomycin Trough Check NOTE FOLLOW UP ONE (08:30)
== END 2024-08-08 13:31 | disposition home or self-care (01) | DRG 710 ==
LOC: EDHOLD 14:31 → ED 14:31 → SUATTDRO 16:58 → MEDTELE 08-05 01:05
PROVIDERS: ADMIT Student in an Organized Health Care Education/Training Program; ATTEND Internal Medicine